=== PATIENT | male | born 1980 | race Caucasian/White ===

== ENCOUNTER 2020-03-08 16:12 | Emergency (ER) | payer SELFPAY ==
[~2020-03-08] VITALS: Ht 167.6 cm; Wt 59.0 kg
[2020-03-08 16:50] VITALS: BP 156/90
[2020-03-08] MEDS ORDERED: POLY10DR3 EACHEYE (17:14)
--- NOTE | 2020-03-08 17:15 | PHYS DOC ---
Past Medical History Past Medical History: No Pertinent History Past Surgical History: No Surgical History Smoking Status: Never Smoker Alcohol Use: None General Adult EDM: Chief Complaint: EYE PROBLEMS HPI: HPI: Patient is a 39 year old male who presents with 2 days of right eye redness and itching. He states is also light sensitive and at times he states it is crusty. He denies past medical history or recent illness. He denies any pain unless he goes out into the sunlight or bright light hits his eye. He denies any vision changes. He denies injuring the eye or getting anything in his eye. Review of Systems: Review of Systems: Constitutional: Denies fever or chills. [] Eyes: Denies change in visual acuity. Light sensitivity, itching and redness. [] HENT: Denies nasal congestion or sore throat. [] Respiratory: Denies cough or shortness of breath. [] Cardiovascular: Denies chest pain or edema. [] GI: Denies abdominal pain, nausea, vomiting, bloody stools or diarrhea. [] : Denies dysuria. [] Musculoskeletal: Denies back pain or joint pain. [] Integument: Denies rash. [] Neurologic: Denies headache, focal weakness or sensory changes. [] Endocrine: Denies polyuria or polydipsia. [] Lymphatic: Denies swollen glands. [] Psychiatric: Denies depression or anxiety. [] Heart Score: Risk Factors: Risk Factors: DM, Current or recent (<one month) smoker, HTN, HLP, family history of CAD, obesity. Risk Scores: Score 0 - 3: 2.5% MACE over next 6 weeks - Discharge Home Score 4 - 6: 20.3% MACE over next 6 weeks - Admit for Clinical Observation Score 7 - 10: 72.7% MACE over next 6 weeks - Early Invasive Strategies Allergies: Allergies: Allergies Coded Allergies Type Severity Reaction Last Updated Verified No Known Drug Allergies 03/08/20 No Physical Exam: PE: Constitutional: Well developed, well nourished, no acute distress, non-toxic appearance. [] HENT: Normocephalic, atraumatic, bilateral external ears normal, oropharynx moist, no oral exudates, nose normal. [] Eyes: PERRLA, EOMI, conjunctiva reddened, no discharge. [] Neck: Normal range of motion, no tenderness, supple, no stridor. [] Cardiovascular:Heart rate regular rhythm, no murmur [] Lungs & Thorax: Bilateral breath sounds clear to auscultation [] Abdomen: Bowel sounds normal, soft, no tenderness, no masses, no pulsatile masses. [] Skin: Warm, dry, no erythema, no rash. [] Back: No tenderness, no CVA tenderness. [] Extremities: No tenderness, no cyanosis, no clubbing, ROM intact, no edema. [] Neurologic: Alert and oriented X 3, normal motor function, normal sensory function, no focal deficits noted. [] Psychologic: Affect normal, judgement normal, mood normal. [] Current Patient Data: Vital Signs: Vital Signs Date Time Temp Pulse Resp B/P (MAP) Pulse Ox O2 Delivery O2 Flow Rate FiO2 03/08/20 16:50 98.3 74 18 156/90 (112) 98 Room Air 98.3 EKG: EKG: [] Radiology/Procedures: Radiology/Procedures: [] Course & Med Decision Making: Course & Med Decision Making Pertinent Labs and Imaging studies reviewed. (See chart for details) See HPI. PERRLA. Vital signs within normal notes. Alert and oriented x4. Ambulatory to steady gait. Skin pink warm and dry. There is no cellulitis and no pain with movement of the eye. There is no swelling of the outer eye. [] Dragon Disclaimer: Dragon Disclaimer: This electronic medical record was generated, in whole or in part, using a voice recognition dictation system. Departure Departure Impression: Primary Impression: Conjunctivitis Qualified Codes: H10.31 - Unspecified acute conjunctivitis, right eye Disposition: HOME, SELF-CARE Condition: STABLE Referrals: NO PCP (PCP) Erika MONTES MD Patient Instructions: Conjunctivitis (Viral and Bacterial) Additional Instructions: Use antibiotic drops as prescribed. If you are going outside wear sunglasses. Follow-up with an eye doctor if symptoms persist. Scripts Polymyxin B Sulf/Trimethoprim (POLYMYXIN B-TMP EYE DROPS) 10 Ml Drops 1 DROP EACHEYE QID for 7 Days, #10 ML 0 Refills Prov: STEPHANIE HERNANDEZ APRN 03/08/20 Justicifation of Admission Dx: Justifications for Admission: Justification of Admission Dx: N/A STEPHANIE HERNANDEZ APRN Mar 08, 2020 17:15
== END 2020-03-08 17:38 | disposition home or self-care (01) ==
LOC: ER 16:12
DX: H10.31 Unspecified acute conjunctivitis, right eye (principal)
CPT/HCPCS: 99283

== ENCOUNTER 2021-01-09 03:15 | Emergency (ER) | payer OTHER ==
[~2021-01-09] VITALS: Ht 167.6 cm; Wt 59.1 kg
[~2021-01-09 03:15] MED LIST: POLY10DR3 EACHEYE
--- NOTE | 2021-01-09 04:08 | PHYS DOC ---
Past Medical History Past Medical History: No Pertinent History Past Surgical History: No Surgical History Smoking Status: Current Every Day Smoker Alcohol Use: Heavy General Adult EDM: Chief Complaint: FACE PAIN HPI: HPI: Patient is a 40 year old male who present to ER for evaluation of bilateral upper dental pain that been going on for a long time but became more painful last few days. Patient said he had history of dental decay. Patient said he could not sleep last night due to pain so he came in for evaluation. Review of Systems: Review of Systems: Constitutional: Denies fever or chills. [] Eyes: Denies change in visual acuity. [] HENT: Denies nasal congestion or sore throat. Positive for dental decay and pain. Respiratory: Denies cough or shortness of breath. [] Cardiovascular: Denies chest pain or edema. [] GI: Denies abdominal pain, nausea, vomiting, bloody stools or diarrhea. [] : Denies dysuria. [] Musculoskeletal: Denies back pain or joint pain. [] Integument: Denies rash. [] Neurologic: Denies headache, focal weakness or sensory changes. [] Endocrine: Denies polyuria or polydipsia. [] Lymphatic: Denies swollen glands. [] Psychiatric: Denies depression or anxiety. [] Heart Score: C/O Chest Pain: N/A Risk Factors: Risk Factors: DM, Current or recent (<one month) smoker, HTN, HLP, family history of CAD, obesity. Risk Scores: Score 0 - 3: 2.5% MACE over next 6 weeks - Discharge Home Score 4 - 6: 20.3% MACE over next 6 weeks - Admit for Clinical Observation Score 7 - 10: 72.7% MACE over next 6 weeks - Early Invasive Strategies Allergies: Allergies: Allergies Coded Allergies Type Severity Reaction Last Updated Verified No Known Drug Allergies 03/08/20 No Physical Exam: PE: Constitutional: Well developed, well nourished, no acute distress, non-toxic appearance. [] HENT: Normocephalic, atraumatic, bilateral external ears normal, oropharynx moist, no oral exudates, nose normal. Widespread dental decay in upper jaw. No palpable abscess. NO TRISMUS. Eyes: PERRLA, EOMI, conjunctiva normal, no discharge. [] Neck: Normal range of motion, no tenderness, supple, no stridor. [] Cardiovascular:Heart rate regular rhythm, no murmur [] Lungs & Thorax: Bilateral breath sounds clear to auscultation [] Neurologic: Alert and oriented X 3, normal motor function, normal sensory function, no focal deficits noted. [] Psychologic: Affect normal, judgement normal, mood normal. [] Current Patient Data: Vital Signs: Vital Signs Date Time Temp Pulse Resp B/P (MAP) Pulse Ox O2 Delivery O2 Flow Rate FiO2 01/09/21 03:18 70 122/86 (98) 100 Room Air EKG: EKG: [] Radiology/Procedures: Radiology/Procedures: [] Course & Med Decision Making: Course & Med Decision Making Pertinent Labs and Imaging studies reviewed. (See chart for details) [] Dragon Disclaimer: Dragon Disclaimer: This electronic medical record was generated, in whole or in part, using a voice recognition dictation system. Departure Departure Impression: Primary Impression: Dental decay Disposition: 01 HOME / SELF CARE / HOMELESS Condition: STABLE Referrals: NO PCP (PCP) Patient Instructions: Dental Caries Additional Instructions: [facility] [address] [place] [address] [facility] [address] [place] [address] [facility] [address] [place] [address] [facility] [address] [place] [address] [facility] [address] [place] [address] [facility] [place] [address] [place] [address] A[facility] [address] [place] [address] [facility] [place] [address] [place] [address] [facility] [address] [place] [address] [facility] [address] [place] [address] Scripts Amoxicillin (AMOXICILLIN) 500 Mg Capsule 1 CAP PO TID, #30 CAP Prov: MALIK,PETER T DO 01/09/21 Naproxen Sodium (ANAPROX DS) 550 Mg Tablet 1 TAB PO BID PRN for PAIN for 15 Days, #30 TAB 0 Refills Prov: BIANCA MALIK DO 01/09/21 BIANCA MALIK DO Jan 09, 2021 04:07
[2021-01-09 04:15] VITALS: BP 134/86
[2021-01-09] MEDS ORDERED: AMOX500C PO (04:16)
[2021-01-09] MEDS ORDERED: NAPR-682 PO (04:16)
[2021-01-09] MEDS ORDERED: AMOXICILLIN 250 MG CAPSULE. PO ONE (04:30)
[2021-01-09] MEDS ORDERED: KETOROLAC 60 MG/2 ML VIAL. IM ONE (04:30)
== END 2021-01-09 04:39 | disposition home or self-care (01) ==
LOC: ER 03:15
DX: K02.9 Dental caries, unspecified (principal); F17.200 Nicotine dependence, unspecified, uncomplicated; F10.20 Alcohol dependence, uncomplicated; Y90.9 Presence of alcohol in blood, level not specified
CPT/HCPCS: 96372; 99283; J1885

== ENCOUNTER 2021-06-17 10:03 | Observation (INO) | payer OTHER ==
[~2021-06-17] VITALS: Ht 167.6 cm; Wt 73.9 kg
[~2021-06-17 10:03] MED LIST changes: +AMOX500C PO; +NAPR-682 PO
[2021-06-17] MEDS ORDERED: AMPICILLIN/SULBACTAM 3 GM in IV NORMAL SALINE 100ML 100 ML IV ONE (12:00)
[2021-06-17] MEDS ORDERED: DEXAMETHASONE SOD PHOS 4 MG/ML VIAL IVP ONE (12:00)
[2021-06-17] MEDS ORDERED: KETOROLAC 30 MG/ML VIAL. IVP ONE (12:00)
[2021-06-17 13:01] LABS: BASO % 0 % (0-3); EOS # 0.1 x10^3/uL (0.0-0.7); EOS % 0 % (0-3); HEMATOCRIT 42.1 % (39.0-53.0); HEMOGLOBIN 14.5 g/dL (13.0-17.5); LYMPH # 1.6 x10^3/uL (1.0-4.8); LYMPH % 13 % (24-48); MEAN CORPUSCULAR HEMOGLOBIN 31 pg (25-35); MEAN CORPUSCULAR HGB CONC 34 g/dL (31-37); MEAN CORPUSCULAR VOLUME 89 fL (79-100); MONO # 1.1 x10^3/uL (0.0-1.1); MONO % 9 % (0-9); NEUT # 9.5 x10^3/uL (1.8-7.7); NEUT % 77 % (31-73); PLATELET COUNT 293 x10^3/uL (140-400); RED BLOOD COUNT 4.75 x10^6/uL (4.30-5.70); RED CELL DISTRIBUTION WIDTH 13.4 % (11.5-14.5); WHITE BLOOD COUNT 12.3 x10^3/uL (4.0-11.0)
[2021-06-17 13:13] LABS: CALCIUM 8.8 mg/dL (8.5-10.1); CREATININE 0.8 mg/dL (0.7-1.3); GFR 108.2; POTASSIUM 4.1 mmol/L (3.5-5.1)
[2021-06-17 13:18] LABS: ALBUMIN 3.7 g/dL (3.4-5.0); ALBUMIN/GLOBULIN RATIO 0.9 (1.0-1.7); TOTAL BILIRUBIN 0.5 mg/dL (0.2-1.0); TOTAL PROTEIN 7.7 g/dL (6.4-8.2)
--- NOTE | 2021-06-17 13:56 | RAD ---
Examination: CT maxillofacial with IV contrast HISTORY: History of dental infection COMPARISON: None available TECHNIQUE: Axial CT images of the maxillofacial bones with IV contrast. Coronal and sagittal reformat s are performed Exposure: One or more of the following individualized dose reduction techniques were utilized for thi s examination: 1. Automated exposure control 2. Adjustment of the mA and/or kV according to patient size 3. Use of iterative reconstruction technique FINDINGS: Moderate mucosal thickening identified in the right maxillary sinus. Mild mucosal thickening identifi ed in the ethmoidal sinuses. The bilateral orbital globes appear intact. There is lucency identified in the periapical portions of the right maxillary incisor with lucencies identified in the bilateral maxillary and mandibular molar teeth on the left and posterior maxillary premolar and molar teeth.. Mild increased fat stranding identified anterior to the right mandible extending and involving the ri ght cheek likely cellulitis or soft tissue infection. Mild bilateral mandibular lymph nodes. IMPRESSION: 1. Mild increased fat stranding identified anterior to the right mandible extending and involving th e right cheek likely cellulitis or soft tissue infection. 2. There is lucency identified in the periapical portions of the right maxillary incisor with lucenc ies identified in the bilateral maxillary and mandibular molar teeth on the left and posterior maxill kenisha premolar and molar teeth likely dental disease. 3. Moderate mucosal thickening identified in the right maxillary sinus likely sinus disease. Electronically signed by: Aniket Alvares MD (06/17/2021 1:54 PM) [id number]
--- NOTE | 2021-06-17 15:25 | PDOC1 ---
History and Physical Date of Service: DOS: DATE: 06/17/21 TIME: 15:20 Chief Complaint: Chief Complain: Facial swelling History of Present Illness: HPI: 40-year-old male with no significant past medical history except for daily smoker and intellectual disability who presents with his mom for right-sided facial pain and swelling for the last 24 hours. Patient states that for the past several days he has been having dental pain and discomfort and he saw dentist that told him that he needed 9 teeth removed be removed. He was given amoxicillin and some pain medication and referred to an oral surgeon for close follow-up. Patient comes in today because of significant increase in right- sided facial swelling overnight. Denies fevers, nausea vomiting, chest pain, stridor, wheezing, difficulty swallowing, drooling or tongue swelling. Past Medical/Surgical History: PMH/PSH: Past Medical History: No Pertinent History Past Surgical History: Other Additional Past Surgical Histo: LEFT FEMUR PLATE Allergies: Allergies: Coded Allergies: No Known Drug Allergies (Unverified , 03/08/20) Family History: Family History: Reviewed with no relevant findings in the chart Social History: Social History: Smoking Status: Current Every Day Smoker Additional Information: 1 PACK/DAY Alcohol Use: Heavy Current Medications: Current Medications Current Medications Ampicillin Sodium/ Sulbactam Sodium 3 gm/Sodium Chloride 100 ml @ 200 mls/hr 1X ONCE IV Last administered on 06/17/21at 12:40; Start 06/17/21 at 12:00; Stop 06/17/21 at 12:29; Status DC Dexamethasone Sodium Phosphate (Decadron) 10 mg 1X ONCE IVP Last administered on 06/17/21at 12:45; Start 06/17/21 at 12:00; Stop 06/17/21 at 12:10; Status DC Ketorolac Tromethamine (Toradol 30mg Vial) 30 mg 1X ONCE IVP Last administered on 06/17/21at 12:40; Start 06/17/21 at 12:00; Stop 06/17/21 at 12:10; Status DC Active Scripts Active Amoxicillin 500 Mg Capsule 1 Cap PO TID Anaprox Ds (Naproxen Sodium) 550 Mg Tablet 1 Tab PO BID PRN 15 Days Polymyxin B-Tmp Eye Drops (Polymyxin B Sulf/Trimethoprim) 10 Ml Drops 1 Drop EACHEYE QID 7 Days ROS: Review of Systems Review of System REVIEW OF SYSTEMS: GENERAL: Denies weakness SKIN: No bruising, hair changes or rashes. EYES: No blurred, double or loss of vision. NOSE AND THROAT: No history of nosebleeds, hoarseness or sore throat. HEART: No history of palpitations, chest pain or shortness of breath on exertion. LUNGS: Denies cough, hemoptysis, wheezing or shortness of breath. GASTROINTESTINAL: Denies changes in appetite, nausea, vomiting, diarrhea or constipation. GENITOURINARY: No history of frequency, urgency, hesitancy or nocturia. NEUROLOGIC: Denies history of numbness, tingling, or tremor. PSYCHIATRIC: No history of panic, anxiety or depression. ENDOCRINE: No history of heat or cold intolerance, polyuria or polydipsia. EXTREMITIES: Denies joint pain, pain on walking or stiffness. Physical Exam: Vital Signs: Vital Signs Date Time Temp Pulse Resp B/P (MAP) Pulse Ox O2 Delivery O2 Flow Rate FiO2 06/17/21 13:33 80 116/73 (87) 98 Room Air 06/17/21 13:03 18 06/17/21 11:03 98.4 98.4 Physcial Exam: General: Well developed, well nourished, no acute distress, well appearing HEENT: Pupils equally round and reactive to light, EOMI, no discharge, normal conjunctiva. Facial swelling without any erythema. Nontender upon palpation. Poor dentition. No tongue swelling or malodor Neck: Supple, no nuchal rigidity, no JVD, trachea midline, no tenderness Cardiac: RRR, no murmurs, no gallops, no rubs Chest/Lungs: CTAB, no wheeze, no rhonchi, no crackles Abdomen: soft, non-distended, no guarding, no peritoneal signs, non-tender Back: No tenderness Extremities: no edema, pulses intact, non-tender,capillary refill <3 sec bilateral upper and lower extremities, Neuro: Alert and oriented x 4, no focal deficits, normal speech Labs: Labs: Laboratory Tests Test 06/17/21 12:39 White Blood Count 12.3 x10^3/uL (4.0-11.0) Red Blood Count 4.75 x10^6/uL (4.30-5.70) Hemoglobin 14.5 g/dL (13.0-17.5) Hematocrit 42.1 % (39.0-53.0) Mean Corpuscular Volume 89 fL (79-100) Mean Corpuscular Hemoglobin 31 pg (25-35) Mean Corpuscular Hemoglobin Concent 34 g/dL (31-37) Red Cell Distribution Width 13.4 % (11.5-14.5) Platelet Count 293 x10^3/uL (140-400) Neutrophils (%) (Auto) 77 % (31-73) Lymphocytes (%) (Auto) 13 % (24-48) Monocytes (%) (Auto) 9 % (0-9) Eosinophils (%) (Auto) 0 % (0-3) Basophils (%) (Auto) 0 % (0-3) Neutrophils # (Auto) 9.5 x10^3/uL (1.8-7.7) Lymphocytes # (Auto) 1.6 x10^3/uL (1.0-4.8) Monocytes # (Auto) 1.1 x10^3/uL (0.0-1.1) Eosinophils # (Auto) 0.1 x10^3/uL (0.0-0.7) Basophils # (Auto) 0.0 x10^3/uL (0.0-0.2) Sodium Level 138 mmol/L (136-145) Potassium Level 4.1 mmol/L (3.5-5.1) Chloride Level 102 mmol/L (98-107) Carbon Dioxide Level 30 mmol/L (21-32) Anion Gap 6 (6-14) Blood Urea Nitrogen 14 mg/dL (8-26) Creatinine 0.8 mg/dL (0.7-1.3) Estimated GFR (Cockcroft-Gault) 108.2 BUN/Creatinine Ratio 18 (6-20) Glucose Level 105 mg/dL (70-99) Calcium Level 8.8 mg/dL (8.5-10.1) Total Bilirubin 0.5 mg/dL (0.2-1.0) Aspartate Amino Transf (AST/SGOT) 14 U/L (15-37) Alanine Aminotransferase (ALT/SGPT) 23 U/L (16-63) Alkaline Phosphatase 92 U/L (46-116) Total Protein 7.7 g/dL (6.4-8.2) Albumin 3.7 g/dL (3.4-5.0) Albumin/Globulin Ratio 0.9 (1.0-1.7) Laboratory Tests Test 06/17/21 12:39 White Blood Count 12.3 x10^3/uL (4.0-11.0) Red Blood Count 4.75 x10^6/uL (4.30-5.70) Hemoglobin 14.5 g/dL (13.0-17.5) Hematocrit 42.1 % (39.0-53.0) Mean Corpuscular Volume 89 fL (79-100) Mean Corpuscular Hemoglobin 31 pg (25-35) Mean Corpuscular Hemoglobin Concent 34 g/dL (31-37) Red Cell Distribution Width 13.4 % (11.5-14.5) Platelet Count 293 x10^3/uL (140-400) Neutrophils (%) (Auto) 77 % (31-73) Lymphocytes (%) (Auto) 13 % (24-48) Monocytes (%) (Auto) 9 % (0-9) Eosinophils (%) (Auto) 0 % (0-3) Basophils (%) (Auto) 0 % (0-3) Neutrophils # (Auto) 9.5 x10^3/uL (1.8-7.7) Lymphocytes # (Auto) 1.6 x10^3/uL (1.0-4.8) Monocytes # (Auto) 1.1 x10^3/uL (0.0-1.1) Eosinophils # (Auto) 0.1 x10^3/uL (0.0-0.7) Basophils # (Auto) 0.0 x10^3/uL (0.0-0.2) Sodium Level 138 mmol/L (136-145) Potassium Level 4.1 mmol/L (3.5-5.1) Chloride Level 102 mmol/L (98-107) Carbon Dioxide Level 30 mmol/L (21-32) Anion Gap 6 (6-14) Blood Urea Nitrogen 14 mg/dL (8-26) Creatinine 0.8 mg/dL (0.7-1.3) Estimated GFR (Cockcroft-Gault) 108.2 BUN/Creatinine Ratio 18 (6-20) Glucose Level 105 mg/dL (70-99) Calcium Level 8.8 mg/dL (8.5-10.1) Total Bilirubin 0.5 mg/dL (0.2-1.0) Aspartate Amino Transf (AST/SGOT) 14 U/L (15-37) Alanine Aminotransferase (ALT/SGPT) 23 U/L (16-63) Alkaline Phosphatase 92 U/L (46-116) Total Protein 7.7 g/dL (6.4-8.2) Albumin 3.7 g/dL (3.4-5.0) Albumin/Globulin Ratio 0.9 (1.0-1.7) Images: Images PROCEDURE: CT MAXILLOFACIAL W/CONTRAST IMPRESSION: 1. Mild increased fat stranding identified anterior to the right mandible extending and involving the right cheek likely cellulitis or soft tissue infection. 2. There is lucency identified in the periapical portions of the right maxillary incisor with lucencies identified in the bilateral maxillary and mandibular molar teeth on the left and posterior maxillary premolar and molar teeth likely dental disease. 3. Moderate mucosal thickening identified in the right maxillary sinus likely sinus disease. Assessment/Plan Assessment/Plan Acute right facial cellulitis Multiple dental caries Intellectual disability Tobacco misuse disorder Admit to hospitalist service for further management Continue IV Unasyn Pending blood cultures IV n.p.o. pain medications SCD for DVT prophylaxis Regular diet CODE STATUS full Discussed with RN and SW Disposition inpatient management as above DPOA: Mom Smoking cessation: Total time spent was 12 minutes in face to face counseling. Patient has considered nicotine patches/gum or to start on Varnicline when discharged Justifications for Admission Other Justification JIN SHARMA MD Jun 17, 2021 15:25
[2021-06-17] MEDS ORDERED: CLINDAMYCIN 900MG PREMIX 50 ML IV ONE (15:30)
[2021-06-17] MEDS ORDERED: PROCHLORPERAZINE 10 MG/2 ML VIAL. IV PRN (15:30)
[2021-06-17] MEDS ORDERED: ACETAMINOPHEN 325 MG TABLET. PO PRN (15:30)
[2021-06-17] MEDS ORDERED: ONDANSETRON PF 4 MG/2 ML VIAL. IVP PRN ×2 (15:30→15:45)
[2021-06-17] MEDS ORDERED: HYDROcodone/APAP 5/325MG 1 TAB TABLET PO PRN (15:30)
[2021-06-17] MEDS ORDERED: DOCUSATE SODIUM 100 MG CAPSULE. PO PRN (15:30)
[2021-06-17] MEDS ORDERED: diphenhydrAMINE 50 MG/ML VIAL IVP PRN (15:30)
[2021-06-17] MEDS ORDERED: ZOLPIDEM 5 MG TABLET. PO PRN (15:30)
[2021-06-17] MEDS ORDERED: LORazepam 0.5 MG TABLET PO PRN (15:30)
[2021-06-17] MEDS ORDERED: diphenhydrAMINE HCL 25 MG CAPSULE PO PRN ×2 (15:30)
[2021-06-17] MEDS ORDERED: SENNOSIDES 8.6 MG TABLET PO PRN (15:30)
[2021-06-17] MEDS ORDERED: DEXTROSE 50% 25 GM / 50ML DISP.SYRIN. IV PRN (15:30)
--- NOTE | 2021-06-17 15:31 | PHYS DOC ---
Past Medical History Past Medical History: No Pertinent History Past Surgical History: Other Additional Past Surgical Histo: LEFT FEMUR PLATE Smoking Status: Current Every Day Smoker Additional Information: 1 PACK/DAY Alcohol Use: Heavy Adult General Chief Complaint Chief Complaint: DENTAL PROBLEM HPI HPI The patient is a 40-year-old male who presents for evaluation of right-sided facial pain and swelling with onset over the last 24 hours in the setting of a number of days of dental discomfort. Patient visited the dentist yesterday morning for these issues at which time he was told he needed 9 teeth removed. He was prescribed amoxicillin and some pain medication and was referred to an oral surgeon for close follow-up. Patient has taken 3 doses of the antibiotic in t ota and returns because of acute onset of right facial swelling overnight. He denies fevers, vomiting, trismus, sore throat, pain or swelling to the floor of the mouth or elevation of the tongue, trouble with secretions, change in voice, shortness of breath. He is alert, pleasantly and appropriately interactive and in no acute distress. Review of Systems Review of Systems A 12 point review of systems was completed and was negative except where noted in HPI above. Current Medications Current Medications Current Medications Medications (Trade) Dose Ordered Sig/Diamond Start Time Stop Time Status Last Admin Dose Admin Acetaminophen (Tylenol) 650 mg PRN Q4HRS PRN 06/17/21 15:30 Acetaminophen/ Hydrocodone Bitart (Lortab 5/325) 2 tab PRN Q4HRS PRN 06/17/21 15:30 Ampicillin Sodium/ Sulbactam Sodium 3 gm/Sodium Chloride 100 ml @ 200 mls/hr Q6HRS 06/17/21 18:00 06/20/21 17:59 Clindamycin Phosphate 50 ml @ 100 mls/hr 1X ONCE 06/17/21 15:30 06/17/21 15:59 Dexamethasone Sodium Phosphate (Decadron) 10 mg 1X ONCE 06/17/21 12:00 06/17/21 12:10 DC 06/17/21 12:45 10 MG Dextrose (Dextrose 50%-Water Syringe) 12.5 gm PRN Q15MIN PRN 06/17/21 15:30 Diphenhydramine HCl (Benadryl) 25 mg PRN QHS PRN 06/17/21 15:30 Docusate Sodium (Colace) 100 mg PRN DAILY PRN 06/17/21 15:30 Ketorolac Tromethamine (Toradol 30mg Vial) 30 mg 1X ONCE 06/17/21 12:00 06/17/21 12:10 DC 06/17/21 12:40 30 MG Lorazepam (Ativan Inj) 0.25 mg PRN Q4HRS PRN 06/17/21 15:30 Lorazepam (Ativan) 0.5 mg PRN Q6HRS PRN 06/17/21 15:30 Ondansetron HCl (Zofran) 4 mg PRN Q6HRS PRN 06/17/21 15:30 Prochlorperazine Edisylate (Compazine) 10 mg PRN Q6HRS PRN 06/17/21 15:30 Sennosides (Senna) 17.2 mg PRN BID PRN 06/17/21 15:30 Zolpidem Tartrate (Ambien) 2.5 mg PRN QHS PRN 06/17/21 15:30 Allergies Allergies Allergies Coded Allergies Type Severity Reaction Last Updated Verified No Known Drug Allergies 03/08/20 No Physical Exam Physical Exam 40-year-old male appearing nontoxic and in no acute distress. Head is normocephalic and atraumatic. Neck is supple and nontender. Oropharynx is moist. There is extensive dental disease and extremely poor dentition with multiple fractured and necrotic teeth. There is some maxillary and mandibular bilateral gingival erythema and tenderness without fluctuance suggestive of abscess. There is fairly marked right-sided facial swelling. No trismus. No change in voice. Tolerating secretions normally. No submental swelling. Lungs are clear to auscultation at all stations. There is a normal S1 and S2 without rubs or gallops and capillary refill is appropriate, less than 2 seconds globally. Abdomen is soft, nontender nondistended. Skin is warm and dry without cyanosis, clubbing or edema. Psychiatrically, the patient demonstrates appropriate mood and affect and is alert. Current Patient Data Vital Signs Vital Signs Date Time Temp Pulse Resp B/P (MAP) Pulse Ox O2 Delivery O2 Flow Rate FiO2 06/17/21 13:33 80 116/73 (87) 98 Room Air 06/17/21 13:03 18 06/17/21 11:03 98.4 98.4 Lab Values Laboratory Tests Test 06/17/21 12:39 White Blood Count 12.3 x10^3/uL (4.0-11.0) H Red Blood Count 4.75 x10^6/uL (4.30-5.70) Hemoglobin 14.5 g/dL (13.0-17.5) Hematocrit 42.1 % (39.0-53.0) Mean Corpuscular Volume 89 fL (79-100) Mean Corpuscular Hemoglobin 31 pg (25-35) Mean Corpuscular Hemoglobin Concent 34 g/dL (31-37) Red Cell Distribution Width 13.4 % (11.5-14.5) Platelet Count 293 x10^3/uL (140-400) Neutrophils (%) (Auto) 77 % (31-73) H Lymphocytes (%) (Auto) 13 % (24-48) L Monocytes (%) (Auto) 9 % (0-9) Eosinophils (%) (Auto) 0 % (0-3) Basophils (%) (Auto) 0 % (0-3) Neutrophils # (Auto) 9.5 x10^3/uL (1.8-7.7) H Lymphocytes # (Auto) 1.6 x10^3/uL (1.0-4.8) Monocytes # (Auto) 1.1 x10^3/uL (0.0-1.1) Eosinophils # (Auto) 0.1 x10^3/uL (0.0-0.7) Basophils # (Auto) 0.0 x10^3/uL (0.0-0.2) Sodium Level 138 mmol/L (136-145) Potassium Level 4.1 mmol/L (3.5-5.1) Chloride Level 102 mmol/L (98-107) Carbon Dioxide Level 30 mmol/L (21-32) Anion Gap 6 (6-14) Blood Urea Nitrogen 14 mg/dL (8-26) Creatinine 0.8 mg/dL (0.7-1.3) Estimated GFR (Cockcroft-Gault) 108.2 BUN/Creatinine Ratio 18 (6-20) Glucose Level 105 mg/dL (70-99) H Calcium Level 8.8 mg/dL (8.5-10.1) Total Bilirubin 0.5 mg/dL (0.2-1.0) Aspartate Amino Transferase (AST) 14 U/L (15-37) L Alanine Aminotransferase (ALT) 23 U/L (16-63) Alkaline Phosphatase 92 U/L (46-116) Total Protein 7.7 g/dL (6.4-8.2) Albumin 3.7 g/dL (3.4-5.0) Albumin/Globulin Ratio 0.9 (1.0-1.7) L Laboratory Tests 06/17/21 12:39 Laboratory Tests 06/17/21 12:39 EKG EKG [] Radiology/Procedures Radiology/Procedures Examination: CT maxillofacial with IV contrast HISTORY: History of dental infection COMPARISON: None available TECHNIQUE: Axial CT images of the maxillofacial bones with IV contrast. Coronal and sagittal reformats are performed Exposure: One or more of the following individualized dose reduction techniques were utilized for this examination: 1. Automated exposure control 2. Adjustment of the mA and/or kV according to patient size 3. Use of iterative reconstruction technique FINDINGS: Moderate mucosal thickening identified in the right maxillary sinus. Mild mucosal thickening identified in the ethmoidal sinuses. The bilateral orbital globes appear intact. There is lucency identified in the periapical portions of the right maxillary incisor with lucencies identified in the bilateral maxillary and mandibular molar teeth on the left and posterior maxillary premolar and molar teeth.. Mild increased fat stranding identified anterior to the right mandible extending and involving the right cheek likely cellulitis or soft tissue infection. Mild bilateral mandibular lymph nodes. IMPRESSION: 1. Mild increased fat stranding identified anterior to the right mandible extending and involving the right cheek likely cellulitis or soft tissue infection. 2. There is lucency identified in the periapical portions of the right maxillary incisor with lucencies identified in the bilateral maxillary and mandibular molar teeth on the left and posterior maxillary premolar and molar teeth likely dental disease. 3. Moderate mucosal thickening identified in the right maxillary sinus likely sinus disease. Electronically signed by: Aniket Alvares MD (06/17/2021 1:54 PM) [id number] DICTATED and SIGNED BY: ANIKET ALVARES MD DATE: 06/17/21 [id number] 0 Course & Med Decision Making Course & Med Decision Making Work-up as above. No oral/facial surgical issue necessitating ENT or OMFS attention. Patient does have a fairly rapidly progressive right-sided facial cellulitis with the source most likely being his necrotic dentition. He feels considerably better after anti-inflammatories, antibiotics and dexamethasone here in the emergency department. Will bring in for further care on an observation basis under Dr. Mckeon, who graciously accepts. Eduardo Disclaimer Dragon Disclaimer This electronic medical record was generated, in whole or in part, using a voice recognition dictation system. Departure Departure Impression: Primary Impression: Facial cellulitis Disposition: ADMITTED INPATIENT Condition: IMPROVED Referrals: NO PCP (PCP) KEVIN AGUIAR MD Jun 17, 2021 15:31
[2021-06-17] MEDS ORDERED: MORPHINE SULFATE 2 MG/ML INJ. IVP PRN (15:45)
[2021-06-17] MEDS ORDERED: CONTRAST GIVEN. MC PRN (17:30)
[2021-06-17] MEDS ORDERED: IOHEXOL 300 MG/ML 100ML VIAL. IV ONE (17:30)
[2021-06-17 19:00] VITALS: BP 99/61
[2021-06-17] MEDS ORDERED: NICOTINE 7MG PATCH. TD PRN (19:30)
[2021-06-17] MEDS: AMPICILLIN/SULBACTAM 3 GM in IV NORMAL SALINE 100ML 100 ML IV SCH (20:02)
[2021-06-17 23:00] VITALS: BP 95/61
[2021-06-18] MEDS: AMPICILLIN/SULBACTAM 3 GM in IV NORMAL SALINE 100ML 100 ML IV SCH ×4 (00:20→16:54)
[2021-06-18 03:00] VITALS: BP 91/56
[2021-06-18 07:00] VITALS: BP 102/64
[2021-06-18 08:48] LABS: BASO % 0 % (0-3); EOS % 0 % (0-3); HEMATOCRIT 38.5 % (39.0-53.0); HEMOGLOBIN 12.8 g/dL (13.0-17.5); LYMPH # 1.3 x10^3/uL (1.0-4.8); LYMPH % 9 % (24-48); MEAN CORPUSCULAR HEMOGLOBIN 30 pg (25-35); MEAN CORPUSCULAR HGB CONC 33 g/dL (31-37); MEAN CORPUSCULAR VOLUME 90 fL (79-100); MONO % 7 % (0-9); NEUT # 11.7 x10^3/uL (1.8-7.7); NEUT % 83 % (31-73); PLATELET COUNT 277 x10^3/uL (140-400); RED BLOOD COUNT 4.28 x10^6/uL (4.30-5.70); RED CELL DISTRIBUTION WIDTH 13.1 % (11.5-14.5); WHITE BLOOD COUNT 14.1 x10^3/uL (4.0-11.0)
[2021-06-18 08:59] LABS: CALCIUM 8.4 mg/dL (8.5-10.1); CREATININE 0.8 mg/dL (0.7-1.3); GFR 108.2; MAGNESIUM 2.2 mg/dL (1.8-2.4); PHOSPHORUS 3.5 mg/dL (2.6-4.7); POTASSIUM 4.5 mmol/L (3.5-5.1)
[2021-06-18 11:00] VITALS: BP 101/57
--- NOTE | 2021-06-18 13:53 | PDOC ---
[facility] PROGRESS NOTE Date of Service DOS: DATE: 06/18/21 TIME: 13:51 Chief Complaint Chief Complaint Acute right facial cellulitis - with lower lid preseptal cellulitis. We will add vancomycin to cover empirically for MRSA and prednisone 5 days. No orbital involvement on CT. Will keep inpatient Multiple dental caries Intellectual disability Tobacco misuse disorder Admit to hospitalist service for further management Continue IV Unasyn Pending blood cultures IV n.p.o. pain medications SCD for DVT prophylaxis Regular diet CODE STATUS full Discussed with RN and SW Disposition inpatient management as above DPOA: Mom History of Present Illness History of Present Illness Mr Davalos is a 40-year-old male with no significant past medical history except for daily smoker and intellectual disability who presents with his mom for right-sided facial pain and swelling for the last 24 hours. Patient states that for the past several days he has been having dental pain and discomfort and he saw dentist that told him that he needed 9 teeth removed be removed. He was given amoxicillin and some pain medication and referred to an oral surgeon for close follow-up. Patient comes in today because of significant increase in right-sided facial swelling overnight. Denies fevers, nausea vomiting, chest pain, stridor, wheezing, difficulty swallowing, drooling or tongue swelling. 06/18: [facility] ED 14. Still with facial pain and swelling feels minimally improved. No chest pain, no shortness of breath. Vitals/I&O Vitals/I&O: Vital Signs Date Time Temp Pulse Resp B/P (MAP) Pulse Ox O2 Delivery O2 Flow Rate FiO2 06/18/21 11:00 97.6 74 14 101/57 (72) 98 Room Air 97.6 I & O 06/17/21 06/17/21 06/18/21 15:00 23:00 07:00 Intake Total 700 ml 240 ml Balance 700 ml 240 ml Physical Exam General: Alert, Oriented X3, Cooperative Heart: Regular rate, Normal S1, Normal S2 Lungs: Clear Abdomen: Normal bowel sounds, Soft Extremities: No clubbing, No cyanosis Skin: No rashes, No breakdown Labs Labs: Laboratory Tests Test 06/18/21 07:55 White Blood Count 14.1 x10^3/uL (4.0-11.0) Red Blood Count 4.28 x10^6/uL (4.30-5.70) Hemoglobin 12.8 g/dL (13.0-17.5) Hematocrit 38.5 % (39.0-53.0) Mean Corpuscular Volume 90 fL (79-100) Mean Corpuscular Hemoglobin 30 pg (25-35) Mean Corpuscular Hemoglobin Concent 33 g/dL (31-37) Red Cell Distribution Width 13.1 % (11.5-14.5) Platelet Count 277 x10^3/uL (140-400) Neutrophils (%) (Auto) 83 % (31-73) Lymphocytes (%) (Auto) 9 % (24-48) Monocytes (%) (Auto) 7 % (0-9) Eosinophils (%) (Auto) 0 % (0-3) Basophils (%) (Auto) 0 % (0-3) Neutrophils # (Auto) 11.7 x10^3/uL (1.8-7.7) Lymphocytes # (Auto) 1.3 x10^3/uL (1.0-4.8) Monocytes # (Auto) 1.0 x10^3/uL (0.0-1.1) Eosinophils # (Auto) 0.0 x10^3/uL (0.0-0.7) Basophils # (Auto) 0.0 x10^3/uL (0.0-0.2) Sodium Level 143 mmol/L (136-145) Potassium Level 4.5 mmol/L (3.5-5.1) Chloride Level 107 mmol/L (98-107) Carbon Dioxide Level 27 mmol/L (21-32) Anion Gap 9 (6-14) Blood Urea Nitrogen 18 mg/dL (8-26) Creatinine 0.8 mg/dL (0.7-1.3) Estimated GFR (Cockcroft-Gault) 108.2 Glucose Level 115 mg/dL (70-99) Calcium Level 8.4 mg/dL (8.5-10.1) Phosphorus Level 3.5 mg/dL (2.6-4.7) Magnesium Level 2.2 mg/dL (1.8-2.4) Assessment and Plan Assessmemt and Plan Problems Medical Problems: (1) Facial cellulitis Status: Acute Comment Review of Relevant I have reviewed the following items simeon (where applicable) has been applied. Medications: Current Medications Medications (Trade) Dose Ordered Sig/Diamond Route PRN Reason Start Time Stop Time Status Last Admin Dose Admin Clindamycin Phosphate 50 ml @ 100 mls/hr 1X ONCE IV 06/17/21 15:30 06/17/21 15:59 DC 06/17/21 18:35 Ampicillin Sodium/ Sulbactam Sodium 3 gm/Sodium Chloride 100 ml @ 200 mls/hr Q6HRS IV 06/17/21 18:00 06/20/21 17:59 06/18/21 12:17 Iohexol (Omnipaque 300 Mg/ml) 75 ml 1X ONCE IV 06/17/21 17:30 06/17/21 17:31 DC 06/17/21 17:20 Justifications for Admission Other Justification ROSALIE DELGADO MD Jun 18, 2021 13:53
[2021-06-18] MEDS ORDERED: VANCOMYCIN PER PHARMACY MC PRN (14:15)
[2021-06-18] MEDS ORDERED: VANCOMYCIN 1.75 GM in IV NORMAL SALINE 500ML BAG 500 ML IV ONE (14:30)
[2021-06-18] MEDS: predniSONE 20 MG TABLET PO SCH (14:32)
[2021-06-18] MEDS: HYDROcodone/APAP 5/325MG 1 TAB TABLET PO PRN (14:34)
[2021-06-18 15:00] VITALS: BP 99/63
--- NOTE | 2021-06-18 17:28 | NUR ---
Pharmacy Vancomycin Dosing Note S:Consulted to monitor and dose vancomycin started 06/18/21. O:BA DE LUNA is a 40 year old M with facial cellulitis. Height: 5 feet, 6 inches Weight: 73.9 kg Dosing Weight: Actual Other Antibiotics: UNASYN 3G IV Q6HRS LABS: Last BUN: 18 Last Creatinine: 0.8 Creatinine Clearance: > 120 mL/min Last WBC: 14.1 Last Procalcitonin: - Tmax (past 24 hours): 97.9 Microbiology: NONE I/O: 940/- A: Patient requires vancomycin for facial cellulitis, goal trough 10-20 mcg/ml. Patient's SCr is 0.8 with an eCrCl > 120 ml/min. P: 1. Initiate Vancomycin 1750 mg IV x 1 dose, then 1000 mg IV q8h 2. Follow up Trough level on 06/19/21 at 1330 3. Pharmacy will continue to monitor, follow and adjust therapy as needed. SHARMIN GARCIA [facility], 06/18/21 0826
[2021-06-18 19:20] VITALS: BP 111/61
[2021-06-18] MEDS: LACTOBACILLUS RHAMNOSUS GG 1 CAPSULE. PO SCH (21:22)
[2021-06-18] MEDS: VANCOMYCIN 1 GM in IV NORMAL SALINE 250ML 250 ML IV SCH (22:00)
[2021-06-18 23:21] VITALS: BP 104/47
[2021-06-19 03:24] VITALS: BP 108/67
[2021-06-19] MEDS: AMPICILLIN/SULBACTAM 3 GM in IV NORMAL SALINE 100ML 100 ML IV SCH ×3 (05:37→11:30)
[2021-06-19] MEDS: VANCOMYCIN 1 GM in IV NORMAL SALINE 250ML 250 ML IV SCH (06:25)
[2021-06-19 06:26] LABS: BASO % 0 % (0-3); EOS % 0 % (0-3); HEMATOCRIT 35.4 % (39.0-53.0); HEMOGLOBIN 11.9 g/dL (13.0-17.5); LYMPH # 1.9 x10^3/uL (1.0-4.8); LYMPH % 19 % (24-48); MEAN CORPUSCULAR HEMOGLOBIN 30 pg (25-35); MEAN CORPUSCULAR HGB CONC 34 g/dL (31-37); MEAN CORPUSCULAR VOLUME 90 fL (79-100); MONO # 0.9 x10^3/uL (0.0-1.1); MONO % 9 % (0-9); NEUT # 7.1 x10^3/uL (1.8-7.7); NEUT % 72 % (31-73); PLATELET COUNT 250 x10^3/uL (140-400); RED BLOOD COUNT 3.95 x10^6/uL (4.30-5.70); RED CELL DISTRIBUTION WIDTH 13.5 % (11.5-14.5); WHITE BLOOD COUNT 9.9 x10^3/uL (4.0-11.0)
[2021-06-19 07:03] LABS: CALCIUM 7.8 mg/dL (8.5-10.1); CREATININE 0.8 mg/dL (0.7-1.3); GFR 108.2; POTASSIUM 4.6 mmol/L (3.5-5.1)
[2021-06-19 07:15] VITALS: BP 121/75
[2021-06-19] MEDS: LACTOBACILLUS RHAMNOSUS GG 1 CAPSULE. PO SCH (08:34)
[2021-06-19] MEDS: predniSONE 20 MG TABLET PO SCH (08:34)
[2021-06-19] MEDS: HYDROcodone/APAP 5/325MG 1 TAB TABLET PO PRN (08:37)
--- NOTE | 2021-06-19 09:58 | NUR ---
SW following. Discussed with RN, pt from home, room air, regular diet. RN advised no SW needs and anticipates discharge home today. SW will continue to follow.
[2021-06-19 11:00] VITALS: BP 108/67
[2021-06-19] MEDS ORDERED: HYDR-2761 PO (11:35)
[2021-06-19] MEDS ORDERED: METH4TAB2 PO (11:35)
--- NOTE | 2021-06-19 13:07 | PDOC ---
[facility] [facility] PROGRESS NOTE Date of Service DOS: DATE: 06/19/21 TIME: 13:07 Chief Complaint Chief Complaint Acute right facial cellulitis - with lower lid preseptal cellulitis. We will add vancomycin to cover empirically for MRSA and prednisone 5 days. No orbital involvement on CT. Will keep inpatient Multiple dental caries Intellectual disability Tobacco misuse disorder Admit to hospitalist service for further management Continue IV Unasyn Pending blood cultures IV n.p.o. pain medications SCD for DVT prophylaxis Regular diet CODE STATUS full Discussed with RN and SW Disposition inpatient management as above DPOA: Mom History of Present Illness History of Present Illness 06/19/2019 Patient seen and examined Discussed with RN Chart reviewed His face is much less swollen Will probably discharge this afternoon on p.o. antibiotics Mr Davalos is a 40-year-old male with no significant past medical history except for daily smoker and intellectual disability who presents with his mom for right-sided facial pain and swelling for the last 24 hours. Patient states that for the past several days he has been having dental pain and discomfort and he saw dentist that told him that he needed 9 teeth removed be removed. He was given amoxicillin and some pain medication and referred to an oral surgeon for close follow-up. Patient comes in today because of significant increase in right-sided facial swelling overnight. Denies fevers, nausea vomiting, chest pain, stridor, wheezing, difficulty swallowing, drooling or tongue swelling. 06/18: WBC ED 14. Still with facial pain and swelling feels minimally improved. No chest pain, no shortness of breath. Vitals/I&O Vitals/I&O: Vital Signs Date Time Temp Pulse Resp B/P (MAP) Pulse Ox O2 Delivery O2 Flow Rate FiO2 06/19/21 11:00 98.2 63 20 108/67 (81) 98 Room Air 98.2 I & O 06/18/21 06/18/21 06/19/21 15:00 23:00 07:00 Intake Total 540 ml Balance 540 ml Physical Exam General: Alert, Oriented X3, Cooperative Heart: Regular rate, Normal S1, Normal S2 Lungs: Clear Abdomen: Normal bowel sounds, Soft Extremities: No clubbing, No cyanosis Skin: No rashes, No breakdown Labs Labs: Laboratory Tests Test 06/19/21 05:20 06/19/21 05:25 Sodium Level 142 mmol/L (136-145) Potassium Level 4.6 mmol/L (3.5-5.1) Chloride Level 109 mmol/L (98-107) Carbon Dioxide Level 28 mmol/L (21-32) Anion Gap 5 (6-14) Blood Urea Nitrogen 16 mg/dL (8-26) Creatinine 0.8 mg/dL (0.7-1.3) Estimated GFR (Cockcroft-Gault) 108.2 Glucose Level 102 mg/dL (70-99) Calcium Level 7.8 mg/dL (8.5-10.1) Magnesium Level 2.0 mg/dL (1.8-2.4) White Blood Count 9.9 x10^3/uL (4.0-11.0) Red Blood Count 3.95 x10^6/uL (4.30-5.70) Hemoglobin 11.9 g/dL (13.0-17.5) Hematocrit 35.4 % (39.0-53.0) Mean Corpuscular Volume 90 fL (79-100) Mean Corpuscular Hemoglobin 30 pg (25-35) Mean Corpuscular Hemoglobin Concent 34 g/dL (31-37) Red Cell Distribution Width 13.5 % (11.5-14.5) Platelet Count 250 x10^3/uL (140-400) Neutrophils (%) (Auto) 72 % (31-73) Lymphocytes (%) (Auto) 19 % (24-48) Monocytes (%) (Auto) 9 % (0-9) Eosinophils (%) (Auto) 0 % (0-3) Basophils (%) (Auto) 0 % (0-3) Neutrophils # (Auto) 7.1 x10^3/uL (1.8-7.7) Lymphocytes # (Auto) 1.9 x10^3/uL (1.0-4.8) Monocytes # (Auto) 0.9 x10^3/uL (0.0-1.1) Eosinophils # (Auto) 0.0 x10^3/uL (0.0-0.7) Basophils # (Auto) 0.0 x10^3/uL (0.0-0.2) Assessment and Plan Assessmemt and Plan Problems Medical Problems: (1) Facial cellulitis Status: Acute Comment Review of Relevant I have reviewed the following items simeon (where applicable) has been applied. Medications: Current Medications Medications (Trade) Dose Ordered Sig/Diamond Route PRN Reason Start Time Stop Time Status Last Admin Dose Admin Prednisone (Prednisone) 20 mg DAILY PO 06/18/21 14:15 06/22/21 09:01 06/19/21 08:34 Vancomycin HCl 1.75 gm/Sodium Chloride 500 ml @ 250 mls/hr 1X ONCE IV 06/18/21 14:30 06/18/21 16:29 DC 06/18/21 14:32 Vancomycin HCl (Vanco Per Pharmacy) 1 each PRN DAILY PRN MC SEE COMMENTS 06/18/21 14:15 06/18/21 17:28 Vancomycin HCl 1 gm/Sodium Chloride 250 ml @ 250 mls/hr Q8H IV 06/18/21 22:00 06/19/21 08:00 DC 06/19/21 06:25 Lactobacillus Rhamnosus (Culturelle) 1 cap BID PO 06/18/21 21:00 06/19/21 08:34 Justifications for Admission Other Justification NICKI ASCENCIO III DO Jun 19, 2021 13:07
--- NOTE | 2021-06-19 13:26 | DS ---
DATE OF DISCHARGE: 06/19/2021 ADMITTING DIAGNOSIS: Dental caries with facial cellulitis. DISCHARGE DIAGNOSES: Resolving facial cellulitis, resolving dental caries. HOSPITAL COURSE: The patient is a pleasant 40-year-old male who presented with dental caries with right facial cellulitis. He was admitted. We started IV antibiotics and fluids and pain meds. Today, I saw him and examined him. He is at his baseline and wants to go home. We plan to discharge on p.o. antibiotics. DISPOSITION: Home. ACTIVITY: As tolerated. DIET: Low sodium. DISCHARGE MEDICATIONS: Please see MRAD. TOTAL TIME: 32 minutes. HALIE/LORENA DR: Earnest TID: [id number]
[2021-06-19] MEDS ORDERED: VANCOMYCIN 1 GM in IV NORMAL SALINE 250ML 250 ML IV SCH (14:00)
[2021-06-19 14:24] LABS: VANC TR 15.7 mcg/mL (10.0-20.0)
[2021-06-19 15:19] VITALS: BP 110/63
--- NOTE | 2021-06-19 16:38 | NUR ---
Patient verbalized understanding of discharge instructions. No questions at this time.
== END 2021-06-19 16:39 | disposition home or self-care (01) ==
LOC: ER 10:03 → 4 NORTH 14:55
PROVIDERS: ADMIT Internal Medicine; ATTEND Internal Medicine
DX: L03.211 Cellulitis of face (principal); K02.9 Dental caries, unspecified; F79 Unspecified intellectual disabilities; F17.210 Nicotine dependence, cigarettes, uncomplicated
CPT/HCPCS: 36415; 70487; 80048; 80053; 80202; 83735; 84100; 85025; 96365; 96366; 96367; 96375; 96376; 99285; 99407; G0378; J0295; J1100; J1885; J3370; J3490; J7040; J7050; J7512; Q0163; Q9967; G0379; J7030